=== PATIENT | female | born 1975 | race Caucasian/White ===

== ENCOUNTER 2017-09-17 15:57 | Emergency (ER) | payer BC ==
[2017-09-17] MEDS ORDERED: Diphtheria,Pertussis(Acell),Tetanus Vaccine 0.5 ML SDV IM ONE (16:24)
--- NOTE | 2017-09-17 16:29 | EDM.PDOC ---
ED HPI GENERAL MEDICAL PROBLEM - General Stated Complaint: THUMB LACERATION Time Seen by Provider: 09/17/17 16:15 Source of Information: Reports: Patient History Limitations: Reports: No Limitations - History of Present Illness INITIAL COMMENTS - FREE TEXT/NARRATIVE: c/o lac cut R thumb on a mandalin slicer, last TD 2006 works in an office - Related Data Allergies Allergy/AdvReac Type Severity Reaction Status Date / Time No Known Allergies Allergy Verified 09/17/17 16:18 Home Meds: Home Meds fluvoxaMINE Maleate [Fluvoxamine Maleate] 50 mg PO BEDTIME 09/17/17 [History] ED ROS GENERAL - Review of Systems Review Of Systems: See Below Constitutional: Reports: No Symptoms HEENT: Reports: No Symptoms Respiratory: Reports: No Symptoms Cardiovascular: Reports: No Symptoms Endocrine: Reports: No Symptoms GI/Abdominal: Reports: No Symptoms : Reports: No Symptoms Musculoskeletal: Reports: No Symptoms Skin: Reports: Wound Neurological: Reports: No Symptoms Psychiatric: Reports: No Symptoms Hematologic/Lymphatic: Reports: No Symptoms Immunologic: Reports: No Symptoms ED EXAM, SKIN/RASH Exam: See Below Exam Limited By: No Limitations General Appearance: Alert, WD/WN, No Apparent Distress Skin: Other (R thumb with an angled laceration through the upper lateral aspect of the nail, involves an area of about 5 mm through the nail (forming a triangle with 3 mm across top and 4 mm along side), extends a little into adjacent skin with a u-shaped superficial lac of 3 mm on each side, however skin and nail are lying with excellent apposition, cleaned, tincture of benzoin and SS applied, should heal well with little to no scar) Departure - Departure Time of Disposition: 16:40 Disposition: Home, Self-Care 01 Clinical Impression: Laceration of right thumb - Discharge Information Instructions: Laceration Care, Adult, Sterile Tape Wound Care Referrals: Godwin Bazzi MD [Primary Care Provider] - Additional Instructions: Keep clean and dry for 1 week. Then keep covered with a bandaid for several weeks until the nail grows out and the edge falls off. While the risk of infection is quite low, see a physician the same day for any increase in redness, swelling, drainage, pain, warmth or fever. Call your Physician or Return to Emergency Department if: * Your condition worsens in any way. * You develop fever greater than 100.4. * You have vomitting that does not stop with medications. * You have pain that is not controlled with medications.
== END 2017-09-17 17:15 | disposition home or self-care (01) ==
LOC: FB.ED 15:57
DX: S61.011A Laceration without foreign body of right thumb without damage to nail, initial encounter (principal); Z23 Encounter for immunization; W27.8XXA Contact with other nonpowered hand tool, initial encounter
CPT/HCPCS: 90471; 90472; 90715; 99282